=== PATIENT | female | born 1960 | race African-American/Black ===

== ENCOUNTER 2024-06-05 15:15 | Inpatient (IN) | payer MEDICARE, OTHER ==
[~2024-06-05] VITALS: Ht 165.1 cm; Wt 50.1 kg
[2024-06-05 16:47] LABS: HEMATOCRIT. 34.7 % (36.0-48.0); HEMOGLOBIN. 11.5 g/dL (12.0-16.0); MEAN CORPUSCULAR HEMOGLOBIN 33.5 pg (28.0-32.0); MEAN CORPUSCULAR HGB CONC 33.1 g/dL (31.0-37.0); MEAN CORPUSCULAR VOLUME 101.4 fL (81.0-99.0); MEAN PLATELET VOLUME 8.6 fl (7.4-10.4); PLATELET 262 x1000/uL (130-400); RED BLOOD CELL COUNT 3.42 mill/uL (4.2-5.4); RED CELL DISTRIBUTION WIDTH 24.2 % (11.6-14.6); WHITE BLOOD COUNT 14.4 x1000/uL (4.5-11.0)
[2024-06-05 16:52] LABS: DIFFERENTIAL COMMENT 1
[2024-06-05 16:57] LABS: CHLORIDE 91 mEq/L (98-107); POTASSIUM 3.5 mEq/L (3.5-5.1); SODIUM 136 mEq/L (136-145)
[2024-06-05 16:58] LABS: CALCIUM 8.3 mg/dL (8.7-10.4); CARBON DIOXIDE 21 mEq/L (21-32)
[2024-06-05 17:03] LABS: GLUCOSE 84 mg/dL (70-105); UREA NITROGEN BLOOD 64 mg/dL (9-23)
[2024-06-05] MEDS ORDERED: TRANEXAMIC ACID 1,000MG/10ML IV ONE (17:15)
[2024-06-05 17:19] LABS: ANISOCYTOSIS 2+; PLATELET ESTIMATE NORMAL
[2024-06-05 17:23] LABS: CREATININE 12.8 mg/dL (0.6-1.0); TROPONIN I HIGH SENSITIVITY 60 ng/L (3.0-34)
[2024-06-05] MEDS: LEVETIRACETAM 500MG PREMIX 100 ML IV ONE (17:55)
[2024-06-05] MEDS: TRANEXAMIC ACID 1000MG PREMIX 100 ML IV NR (17:56)
[2024-06-05] MEDS ORDERED: GUAIFENESIN 200MG/10ML SUGAR FREE UDC PO PRN (19:15)
[2024-06-05] MEDS ORDERED: ONDANSETRON HCL 4MG/2ML INJ IV PRN (19:15)
[2024-06-05] MEDS ORDERED: CLONIDINE 0.1MG TABLET PO PRN (19:15)
[2024-06-05] MEDS ORDERED: IPRATROPIUM/ALBUTEROL 0.5-3(2.5)MG/3ML NEB HHN PRN (19:15)
[2024-06-05] MEDS ORDERED: ACETAMINOPHEN 325MG TABLET PO PRN ×2 (19:15)
[2024-06-05] MEDS ORDERED: MAGNESIUM/ALUMINUM HYDROXIDE/SIMETHICONE 30ML UDC PO PRN (19:15)
[2024-06-05] MEDS: DEXT 5%/0.45% NACL 1000ML 1,000 ML IV SCH (20:01)
[2024-06-05 20:35] LABS: DIFFERENTIAL COMMENT 1; HEMATOCRIT. 35.4 % (36.0-48.0); HEMOGLOBIN. 11.7 g/dL (12.0-16.0); MEAN CORPUSCULAR HEMOGLOBIN 33.8 pg (28.0-32.0); MEAN CORPUSCULAR VOLUME 102.5 fL (81.0-99.0); PLATELET 252 x1000/uL (130-400); RED BLOOD CELL COUNT 3.46 mill/uL (4.2-5.4); RED CELL DISTRIBUTION WIDTH 24.6 % (11.6-14.6); WHITE BLOOD COUNT 13.4 x1000/uL (4.5-11.0)
[2024-06-05 20:40] LABS: CHLORIDE 92 mEq/L (98-107); POTASSIUM 3.9 mEq/L (3.5-5.1); SODIUM 135 mEq/L (136-145)
[2024-06-05 20:41] LABS: CALCIUM 8.5 mg/dL (8.7-10.4); CARBON DIOXIDE 21 mEq/L (21-32)
[2024-06-05 20:46] LABS: GLUCOSE 78 mg/dL (70-105); UREA NITROGEN BLOOD 67 mg/dL (9-23)
[2024-06-05 20:48] LABS: ALANINE AMINOTRANSFERASE 14 IU/L (10-49); ASPARTATE AMINOTRANSFERASE 19 IU/L (<34); BILIRUBIN TOTAL < 0.2 mg/dL (0.1-1.0); PROTEIN TOTAL 6.7 g/dL (6.0-8.3)
[2024-06-05 20:49] LABS: INR 0.9; PROTHROMBIN TIME 10.3 sec (9.6-11.0)
[2024-06-05 20:54] LABS: CREATININE 12.8 mg/dL (0.6-1.0); PHOSPHORUS 9.6 mg/dL (2.5-4.9)
[2024-06-05 20:55] LABS: TROPONIN I HIGH SENSITIVITY 73 ng/L (3.0-34)
[2024-06-05 20:56] LABS: ANISOCYTOSIS 2+; PLATELET ESTIMATE NORMAL
[2024-06-05 23:22] VITALS: BP 122/64; PULSE 120; RESP 15; TEMP 36.6; O2SAT 98
[2024-06-05 23:30] VITALS: BP 119/64; PULSE 112; RESP 14; O2SAT 98
[2024-06-05 23:46] VITALS: BP 113/66; PULSE 109; RESP 12; TEMP 36.9
[2024-06-05] MEDS: LEVETIRACETAM 500MG PREMIX 100 ML IV SCH (23:52)
[2024-06-06] VITALS (75 sets, daily range): BP systolic 89–123; BP diastolic 53–104; PULSE 90–115; RESP 8–23; TEMP 36.6–37.2; O2SAT 95–100
[2024-06-06 00:25] LABS: CREATINE KINASE 33 IU/L (34-145)
[2024-06-06 00:45] LABS: TROPONIN I HIGH SENSITIVITY 70 ng/L (3.0-34)
[2024-06-06 05:34] LABS: HEMATOCRIT. 29.7 % (36.0-48.0); HEMOGLOBIN. 10.1 g/dL (12.0-16.0); MEAN CORPUSCULAR HEMOGLOBIN 34.5 pg (28.0-32.0); MEAN CORPUSCULAR HGB CONC 34.1 g/dL (31.0-37.0); MEAN CORPUSCULAR VOLUME 101.1 fL (81.0-99.0); MEAN PLATELET VOLUME 8.8 fl (7.4-10.4); PLATELET 243 x1000/uL (130-400); RED BLOOD CELL COUNT 2.94 mill/uL (4.2-5.4); RED CELL DISTRIBUTION WIDTH 24.5 % (11.6-14.6); WHITE BLOOD COUNT 10.8 x1000/uL (4.5-11.0)
[2024-06-06 05:48] LABS: THYROID STIMULATING HORMONE 2.02 uIU/mL (0.55-4.78)
[2024-06-06 05:49] LABS: T4 FREE 0.92 ng/dL (0.89-1.76)
[2024-06-06 06:36] LABS: DIFFERENTIAL COMMENT 1
[2024-06-06] MEDS: IOHEXOL-350 100 ML BOTTLE ONE (08:45)
[2024-06-06] MEDS: FOLIC ACID/VITAMIN B COMP W-C TABLET PO SCH (08:45)
[2024-06-06] MEDS: FAMOTIDINE 20MG/2ML VIAL IV SCH (08:45)
[2024-06-06] MEDS ORDERED: VALA100044 MT (09:32)
[2024-06-06 10:24] LABS: POTASSIUM 4.2 mEq/L (3.5-5.1)
[2024-06-06 10:25] LABS: CALCIUM 8.1 mg/dL (8.7-10.4)
[2024-06-06 10:42] LABS: CREATININE 13.8 mg/dL (0.6-1.0)
[2024-06-06 10:57] LABS: ANISOCYTOSIS 2+; PLATELET ESTIMATE NORMAL
[2024-06-06] MEDS: SEVELAMER CARBONATE 800 MG TABLET PO SCH (12:11)
[2024-06-06] MEDS: VALACYCLOVIR HCL 500MG TABLET PO SCH (12:11)
[2024-06-06] MEDS ORDERED: SEVE800T25 PO (13:58)
[2024-06-06] MEDS ORDERED: CALC667C MT (13:58)
[2024-06-06] MEDS ORDERED: MIRT-90 MT (13:58)
[2024-06-06] MEDS ORDERED: PRED10TA MT (13:58)
[2024-06-06] MEDS ORDERED: ROSU40TA MT (13:58)
[2024-06-06] MEDS ORDERED: CINA30 MT (13:58)
[2024-06-06] MEDS ORDERED: ONDA-241 MT (13:59)
[2024-06-06] MEDS ORDERED: VALACYCLOVIR HCL 500MG TABLET PO SCH (19:15)
[2024-06-06 19:55] LABS: BODY FLUID MONOCYTES 14 %; BODY FLUID RBC 20 /cu mm (0-2000); BODY FLUID WBC 45 /cu mm (0-200)
[2024-06-06] MEDS: PREDNISONE 10MG TABLET PO SCH (21:30)
[2024-06-07] VITALS (10 sets, daily range): BP systolic 100–116; BP diastolic 58–71; PULSE 86–102; RESP 12–32; TEMP 36.5–36.8; O2SAT 94–99
[2024-06-07] MEDS: CALCIUM ACETATE 667MG CAPSULE PO SCH (07:20)
[2024-06-07 08:04] LABS: HEMATOCRIT. 33.1 % (36.0-48.0); HEMOGLOBIN. 10.9 g/dL (12.0-16.0); MEAN CORPUSCULAR HEMOGLOBIN 33.4 pg (28.0-32.0); MEAN CORPUSCULAR VOLUME 101.3 fL (81.0-99.0); PLATELET 260 x1000/uL (130-400); RED BLOOD CELL COUNT 3.26 mill/uL (4.2-5.4); RED CELL DISTRIBUTION WIDTH 23.7 % (11.6-14.6); WHITE BLOOD COUNT 12.3 x1000/uL (4.5-11.0)
[2024-06-07] MEDS: DOCUSATE SODIUM 100MG CAPSULE PO PRN (08:12)
[2024-06-07 08:14] LABS: CHLORIDE 92 mEq/L (98-107); POTASSIUM 3.8 mEq/L (3.5-5.1); SODIUM 134 mEq/L (136-145)
[2024-06-07 08:15] LABS: CARBON DIOXIDE 21 mEq/L (21-32)
[2024-06-07 08:16] LABS: CALCIUM 8.7 mg/dL (8.7-10.4)
[2024-06-07 08:20] LABS: GLUCOSE 158 mg/dL (70-105)
[2024-06-07 08:21] LABS: UREA NITROGEN BLOOD 63 mg/dL (9-23)
[2024-06-07 08:37] LABS: DIFFERENTIAL COMMENT 1
[2024-06-07 08:46] LABS: CREATININE 13.2 mg/dL (0.6-1.0)
[2024-06-07 08:50] LABS: TROPONIN I HIGH SENSITIVITY 54 ng/L (3.0-34)
[2024-06-07] MEDS: CINACALCET HCL 30MG TABLET PO SCH (09:00)
[2024-06-07 17:41] LABS: ANISOCYTOSIS 2+; PLATELET ESTIMATE NORMAL
== END 2024-06-07 15:45 | disposition home or self-care (01) | DRG 82 ==
LOC: ER 15:15 → EDBD 15:15 → MICUNO 18:18 → 3WST 06-06 23:48
PROVIDERS: ADMIT Hospitalist; ATTEND Hospitalist
PROC: 3E1M39Z Irrigation of Peritoneal Cavity using Dialysate, Percutaneous Approach (ICD-10-PCS; principal; 2024-06-06)
DX: S06.6XAA Traumatic subarachnoid hemorrhage with loss of consciousness status unknown, initial encounter (principal); I21.4 Non-ST elevation (NSTEMI) myocardial infarction; N18.6 End stage renal disease; C90.00 Multiple myeloma not having achieved remission; E87.1 Hypo-osmolality and hyponatremia; I12.0 Hypertensive chronic kidney disease with stage 5 chronic kidney disease or end stage renal disease; S00.03XA Contusion of scalp, initial encounter; E83.39 Other disorders of phosphorus metabolism; G90.89 Other disorders of autonomic nervous system; I95.9 Hypotension, unspecified; E04.1 Nontoxic single thyroid nodule; W18.39XA Other fall on same level, initial encounter; G40.909 Epilepsy, unspecified, not intractable, without status epilepticus; Z79.899 Other long term (current) drug therapy; Y93.89 Activity, other specified; Y92.89 Other specified places as the place of occurrence of the external cause; Y99.8 Other external cause status; Z99.2 Dependence on renal dialysis; Z91.199 Patient's noncompliance with other medical treatment and regimen due to unspecified reason; Z76.82 Awaiting organ transplant status
CPT/HCPCS: 36415; 70496; 70498; 71045; 80048; 80053; 80061; 82550; 83605; 83735; 83880; 84100; 84145; 84439; 84443; 84484; 85025; 85384; 90945; 93005; 93306; 93970; 97165; 99291; J1953; J3490; J7512; Q9967

== ENCOUNTER 2024-06-17 12:23 | Inpatient (IN) | payer OTHER, MEDICARE ==
[~2024-06-17] VITALS: Ht 165.1 cm; Wt 40.8 kg
[~2024-06-17 12:23] MED LIST: CALC667C MT; CINA30 MT; MIRT-90 MT; ONDA-241 MT; PRED10TA MT; ROSU40TA MT; SEVE800T25 PO; VALA100044 MT
[2024-06-17 12:26] VITALS: O2SAT 98
[2024-06-17] MEDS: ACETAMINOPHEN 325MG TABLET PO ONE (13:21)
[2024-06-17 14:16] LABS: CARBON DIOXIDE 19 mEq/L (21-32); CHLORIDE 87 mEq/L (98-107); POTASSIUM 3.7 mEq/L (3.5-5.1); SODIUM 130 mEq/L (136-145)
[2024-06-17 14:17] LABS: CALCIUM 7.6 mg/dL (8.7-10.4)
[2024-06-17 14:22] LABS: GLUCOSE 94 mg/dL (70-105); HEMATOCRIT. 30.4 % (36.0-48.0); HEMOGLOBIN. 9.9 g/dL (12.0-16.0); MEAN CORPUSCULAR HEMOGLOBIN 32.7 pg (28.0-32.0); MEAN CORPUSCULAR HGB CONC 32.5 g/dL (31.0-37.0); MEAN CORPUSCULAR VOLUME 100.8 fL (81.0-99.0); MEAN PLATELET VOLUME 9.2 fl (7.4-10.4); PLATELET 210 x1000/uL (130-400); RED BLOOD CELL COUNT 3.02 mill/uL (4.2-5.4); RED CELL DISTRIBUTION WIDTH 21.9 % (11.6-14.6); WHITE BLOOD COUNT 15.1 x1000/uL (4.5-11.0)
[2024-06-17 14:23] LABS: ALANINE AMINOTRANSFERASE 18 IU/L (10-49); ASPARTATE AMINOTRANSFERASE 25 IU/L (<34)
[2024-06-17 14:24] LABS: ALBUMIN 3.8 g/dL (3.2-4.8); BILIRUBIN TOTAL < 0.2 mg/dL (0.1-1.0); PROTEIN TOTAL 6.5 g/dL (6.0-8.3)
[2024-06-17 14:25] LABS: UREA NITROGEN BLOOD 105 mg/dL (9-23)
[2024-06-17 14:27] LABS: DIFFERENTIAL COMMENT 1
[2024-06-17 14:29] LABS: BILIRUBIN DIRECT < 0.1 mg/dL (<=3.0)
[2024-06-17 14:43] LABS: INR 0.9; PROTHROMBIN TIME 10.2 sec (9.6-11.0)
[2024-06-17 21:00] VITALS: BP 121/62; PULSE 93; RESP 18; TEMP 37
[2024-06-17] MEDS ORDERED: ONDANSETRON 4MG ODT PO PRN (22:00)
[2024-06-17] MEDS: MIRTAZAPINE 15MG TABLET PO SCH (22:00)
[2024-06-17] MEDS ORDERED: NALOXONE HCL 0.4MG/ML VIAL IV PRN (22:00)
[2024-06-17] MEDS: ATORVASTATIN CALCIUM 40MG TABLET PO SCH (22:22)
[2024-06-17] MEDS: HYDROCODONE/ACETAMINOPHEN 10/325MG TABLET PO PRN (22:41)
[2024-06-18] VITALS (7 sets, daily range): BP systolic 101–126; BP diastolic 57–67; PULSE 76–95; RESP 16–20; TEMP 36.2–36.8; O2SAT 94–100
[2024-06-18 00:43] LABS: PLATELET ESTIMATE NORMAL
[2024-06-18 00:44] LABS: ANISOCYTOSIS 2+
[2024-06-18 07:52] LABS: HEMATOCRIT. 30.4 % (36.0-48.0); MEAN CORPUSCULAR HEMOGLOBIN 33.2 pg (28.0-32.0); MEAN CORPUSCULAR HGB CONC 32.8 g/dL (31.0-37.0); MEAN CORPUSCULAR VOLUME 101.1 fL (81.0-99.0); MEAN PLATELET VOLUME 9.3 fl (7.4-10.4); PLATELET 221 x1000/uL (130-400); RED BLOOD CELL COUNT 3.01 mill/uL (4.2-5.4); RED CELL DISTRIBUTION WIDTH 21.5 % (11.6-14.6); WHITE BLOOD COUNT 14.5 x1000/uL (4.5-11.0)
[2024-06-18 08:00] LABS: DIFFERENTIAL COMMENT 1
[2024-06-18 08:03] LABS: CARBON DIOXIDE 17 mEq/L (21-32); CHLORIDE 84 mEq/L (98-107); POTASSIUM 3.6 mEq/L (3.5-5.1); SODIUM 127 mEq/L (136-145)
[2024-06-18 08:04] LABS: CALCIUM 7.6 mg/dL (8.7-10.4)
[2024-06-18 08:08] LABS: GLUCOSE 87 mg/dL (70-105)
[2024-06-18 08:10] LABS: ALANINE AMINOTRANSFERASE 18 IU/L (10-49); ALBUMIN 3.8 g/dL (3.2-4.8); ASPARTATE AMINOTRANSFERASE 23 IU/L (<34)
[2024-06-18 08:11] LABS: BILIRUBIN TOTAL < 0.2 mg/dL (0.1-1.0); PROTEIN TOTAL 6.5 g/dL (6.0-8.3)
[2024-06-18 08:13] LABS: CREATININE 15.3 mg/dL (0.6-1.0); UREA NITROGEN BLOOD 107 mg/dL (9-23)
[2024-06-18] MEDS: CINACALCET HCL 30MG TABLET PO SCH (09:00)
[2024-06-18] MEDS: CALCIUM ACETATE 667MG CAPSULE PO SCH (10:15)
[2024-06-18] MEDS: PREDNISONE 10MG TABLET PO SCH (10:15)
[2024-06-18] MEDS: SEVELAMER CARBONATE 800 MG TABLET PO SCH (10:15)
[2024-06-18] MEDS: VALACYCLOVIR HCL 500MG TABLET PO SCH (13:30)
[2024-06-18 13:45] LABS: ANISOCYTOSIS 2+; PLATELET ESTIMATE NORMAL
[2024-06-18] MEDS ORDERED: CLONIDINE 0.1MG TABLET PO PRN (14:30)
[2024-06-18] MEDS ORDERED: ONDANSETRON HCL 4MG/2ML INJ IV PRN (14:30)
[2024-06-18] MEDS ORDERED: ACETAMINOPHEN 325MG TABLET PO PRN ×2 (14:30)
[2024-06-18] MEDS ORDERED: IPRATROPIUM/ALBUTEROL 0.5-3(2.5)MG/3ML NEB HHN PRN (14:30)
[2024-06-18] MEDS: SODIUM BICARBONATE 8.4% 50MEQ/50ML SYR IV NR (14:30)
[2024-06-18] MEDS ORDERED: DOCUSATE SODIUM 100MG CAPSULE PO PRN (14:30)
[2024-06-18] MEDS: PIPERACILLIN/TAZO 3.375G/50ML 50 ML IV SCH (15:00)
[2024-06-18 19:32] LABS: CREATINE KINASE 82 IU/L (34-145)
[2024-06-18] MEDS: MIRTAZAPINE 15MG TABLET PO SCH (21:50)
[2024-06-18] MEDS: ATORVASTATIN CALCIUM 40MG TABLET PO SCH (21:50)
[2024-06-19 07:25] VITALS: BP 133/67; PULSE 76; RESP 17; TEMP 36.50292; O2SAT 99
[2024-06-19 07:30] VITALS: BP 122/65; PULSE 75; RESP 17; TEMP 36.50292; O2SAT 98
[2024-06-19] MEDS: SODIUM BICARBONATE 650MG TABLET PO SCH (13:00)
[2024-06-19 13:53] LABS: CLARITY URINE CLOUDY (CLEAR); COLOR URINE YELLOW (YELLOW); GLUCOSE URINE 2+ (NEGATIVE); KETONES URINE 1+ (NEGATIVE); LEUKOCYTE ESTERASE URINE TRACE (NEGATIVE); NITRITE URINE NEGATIVE (NEGATIVE); OCCULT BLOOD URINE 1+ (NEGATIVE); PH URINE 7.5 (4.5-8.0); PROTEIN URINE 4+ (NEGATIVE); SPECIFIC GRAVITY URINE 1.023 (1.005-1.030); UROBILINOGEN URINE 0.2 E.U./dL (0.2-1.0)
[2024-06-19 14:11] LABS: BACTERIA URINE 2+; SQUAMOUS EPITHELIAL CELL URINE NONE SEEN /lpf (RARE/1+); WBC URINE 50-100 /hpf (0-2); YEAST URINE NONE SEEN
[2024-06-19 14:31] LABS: *AMPHETAMINES SCREEN URINE NEGATIVE (NEGATIVE)
[2024-06-19 14:32] LABS: *BARBITURATES SCREEN URINE NEGATIVE (NEGATIVE); *BENZODIAZEPINES SCREEN URINE NEGATIVE (NEGATIVE); *COCAINE SCREEN URINE NEGATIVE (NEGATIVE)
[2024-06-19 14:33] LABS: CANNABINOID URINE SCREEN NEGATIVE (NEGATIVE); ECSTASY MDMA SCREEN URINE NEGATIVE (NEGATIVE); METHADONE URINE SCREEN NEGATIVE (NEGATIVE); OPIATES URINE SCREEN NEGATIVE (NEGATIVE); PHENCYCLIDINE URINE SCREEN NEGATIVE (NEGATIVE)
[2024-06-19 16:00] VITALS: BP 129/70; PULSE 96; RESP 18; TEMP 36.5; O2SAT 96
[2024-06-19 21:45] VITALS: BP 127/63; PULSE 112; RESP 18; TEMP 37.44744; O2SAT 99
[2024-06-19 21:50] VITALS: BP 122/65; PULSE 112; RESP 17; TEMP 37.2252; O2SAT 98
[2024-06-20] VITALS: BP 117/49; PULSE 104; RESP 18; TEMP 36.1; O2SAT 97
[2024-06-20] MEDS: METOPROLOL TARTRATE 50MG TABLET PO SCH (00:16)
[2024-06-20 04:00] VITALS: BP 90/46; PULSE 84; RESP 18; TEMP 36.6; O2SAT 99
[2024-06-20 12:00] VITALS: BP 100/51; PULSE 84; RESP 18; TEMP 36.4; O2SAT 99
[2024-06-20 13:02] LABS: HEMATOCRIT. 28.2 % (36.0-48.0); HEMOGLOBIN. 9.2 g/dL (12.0-16.0); MEAN CORPUSCULAR HEMOGLOBIN 33.3 pg (28.0-32.0); MEAN CORPUSCULAR HGB CONC 32.7 g/dL (31.0-37.0); MEAN CORPUSCULAR VOLUME 101.8 fL (81.0-99.0); MEAN PLATELET VOLUME 8.7 fl (7.4-10.4); PLATELET 260 x1000/uL (130-400); RED BLOOD CELL COUNT 2.77 mill/uL (4.2-5.4); RED CELL DISTRIBUTION WIDTH 21.3 % (11.6-14.6); WHITE BLOOD COUNT 11.6 x1000/uL (4.5-11.0)
[2024-06-20 13:13] LABS: CHLORIDE 86 mEq/L (98-107); PROTHROMBIN TIME 10.4 sec (9.6-11.0); SODIUM 130 mEq/L (136-145)
[2024-06-20 13:14] LABS: CARBON DIOXIDE 20 mEq/L (21-32)
[2024-06-20 13:15] LABS: CALCIUM 7.5 mg/dL (8.7-10.4)
[2024-06-20 13:19] LABS: GLUCOSE 108 mg/dL (70-105)
[2024-06-20 13:23] LABS: CREATININE 14.8 mg/dL (0.6-1.0); UREA NITROGEN BLOOD 106 mg/dL (9-23)
[2024-06-20 13:25] LABS: PHOSPHORUS 8.5 mg/dL (2.5-4.9)
[2024-06-20 13:26] LABS: DIFFERENTIAL COMMENT 1
[2024-06-20 16:00] VITALS: BP 113/51; PULSE 91; RESP 18; TEMP 36.4; O2SAT 98
[2024-06-20 18:14] LABS: ANISOCYTOSIS 1+; PLATELET ESTIMATE NORMAL
[2024-06-20 20:00] VITALS: BP 106/60; PULSE 97; RESP 15; TEMP 37.2; O2SAT 98
[2024-06-21] VITALS (7 sets, daily range): BP systolic 104–115; BP diastolic 52–56; PULSE 95–98; RESP 16–18; TEMP 36.4–36.7; O2SAT 98–100
[2024-06-21 22:22] LABS: BODY FLUID MONOCYTES 29 %; BODY FLUID RBC 13 /cu mm (0-2000); BODY FLUID WBC 39 /cu mm (0-200)
== END 2024-06-21 20:30 | disposition left against medical advice (07) | DRG 535 ==
LOC: ER 12:23 → EDBEDREQ 18:59 → EDBEDREQSVC 18:59 → EDBEDREQTM 18:59 → EDBEDREQSVC 20:28 → 7EST 21:11 → 5WST 06-18 01:18
PROVIDERS: ADMIT Internal Medicine; ATTEND Internal Medicine
PROC: 5A1D70Z Performance of Urinary Filtration, Intermittent, Less than 6 Hours Per Day (ICD-10-PCS; principal; 2024-06-19)
PROC: 5A1D70Z Performance of Urinary Filtration, Intermittent, Less than 6 Hours Per Day (ICD-10-PCS; 2024-06-21)
DX: S32.591A Other specified fracture of right pubis, initial encounter for closed fracture (principal); N18.6 End stage renal disease; S22.41XA Multiple fractures of ribs, right side, initial encounter for closed fracture; E87.1 Hypo-osmolality and hyponatremia; E87.20 Acidosis, unspecified; I12.0 Hypertensive chronic kidney disease with stage 5 chronic kidney disease or end stage renal disease; N39.0 Urinary tract infection, site not specified; D64.9 Anemia, unspecified; Z20.822 Contact with and (suspected) exposure to COVID-19; D86.9 Sarcoidosis, unspecified; E83.39 Other disorders of phosphorus metabolism; G40.909 Epilepsy, unspecified, not intractable, without status epilepticus; W18.39XA Other fall on same level, initial encounter; Z53.29 Procedure and treatment not carried out because of patient's decision for other reasons; Z91.199 Patient's noncompliance with other medical treatment and regimen due to unspecified reason; Y93.89 Activity, other specified; Z99.2 Dependence on renal dialysis; Y92.89 Other specified places as the place of occurrence of the external cause; Y99.8 Other external cause status
CPT/HCPCS: 36415; 72170; 73552; 73562; 74176; 80048; 80053; 80076; 80305; 81003; 82533; 82550; 83605; 83735; 83930; 84100; 84145; 85025; 85379; 87426; 90945; 93005; 99285; A4606; J2543; J3490; J7512